=== PATIENT | female | born 1955 | race Caucasian/White ===

== ENCOUNTER 2019-07-13 17:19 | Emergency (ER) | payer OTHER ==
[~2019-07-13] VITALS: Ht 165.1 cm; Wt 68.0 kg
[2019-07-13 17:22] VITALS: Ht 165.1 cm; Wt 68.0 kg
[2019-07-13 18:53] VITALS: BP 145/69
== END 2019-07-13 18:54 | disposition home or self-care (01) ==
LOC: ED 17:19
DX: B02.9 Zoster without complications (principal)